=== PATIENT | female | born 1940 | race Caucasian/White ===

== ENCOUNTER → 2018-02-05 | Outpatient (CLI) | payer MEDICARE, BC ==
[~2018-02-05] MED LIST: HUMALOG100 UNIT/1 SQ; LANTUS100 UNITS/ SQ; LOSARTAN POTAS100 MG PO; PROZAC10 M1 PO; SYNTHROID; TYLENOL WITH C1 EACH PO; VITAMIN B12; Z FOLIC ACID PO; Z.0.HUMALOG100 UNIT/ SQ; Z.0.LANTUS100 UNIT/1 SQ; Z.0.VASOTEC5 MG PO
--- NOTE | 2018-02-05 15:34 | Diagnostic Imaging Report ---
PROCEDURE:BONE DXA DUAL ENERGY INDICATION: History of lumbar compression fracture The patient history questionnaire was completed and is available on PACS. COMPARISON:None. FINDINGS: Evaluation of the left hip and lumbar spine was performed utilizing DEXA Hologic bone densitometer. The study is technically adequate. The patient's fracture risk is compared to an age-matched control. Left femoral neck bone mineral density: 0.556 g/cm2, T-score is -2.6, Z-score is -0.4. Left total hip bone mineral density: 0.587 g/cm2, T-score is -2.9, Z-score is -0.9. Lumbar spine total bone mineral density: 0.708 g/cm2, T-score is -3.1, Z-score is -0.5. IMPRESSION: Bone mineralization by WHO Classification is osteoporosis, based on measurements obtained in the lumbar spine and left hip. The fracture risk is high. Dictated by: Lavelle Evans M.D. on 02/05/2018 at 15:35 Electronically approved by: Lavelle Evans M.D. on 02/05/2018 at 15:35
== END ==
LOC: DX 14:47
PROVIDERS: ATTEND Specialist
DX: S32.020D Wedge compression fracture of second lumbar vertebra, subsequent encounter for fracture with routine healing (principal); M81.0 Age-related osteoporosis without current pathological fracture
CPT/HCPCS: 77080